=== PATIENT | male | born 1960 | race Caucasian/White ===

== ENCOUNTER 2018-11-14 08:50 | Day surgery (SDC) | payer OTHER ==
[2018-11-14] MEDS ORDERED: Xylocaine-Mpf 2% 5 Ml Vial IJ ONE (08:51)
[2018-11-14] MEDS ORDERED: DIPRIVAN 200 MG/20 ML IV ONE (08:51)
[2018-11-14] MEDS ORDERED: Depo-Medrol 40 MG/ML IM ONE (08:51)
--- NOTE | 2018-11-14 13:04 | XRAY ---
Indication: Bilateral L4-S1 MBB. Intraoperative fluoroscopy was provided for 10 seconds. Single digital spot image submitted for interpretation demonstrates posterior needle tips projecting over the expected course of the left and right L4-S1 nerve roots. Correlate with intraoperative findings/report.
--- NOTE | 2018-11-14 13:06 | XRAY ---
10 seconds fluoroscopy time in surgery for bilateral L4-S1 MBB.
[2018-11-14] MEDS ORDERED: Lactated Ringers 1,000 ML IV ONE (17:02)
== END 2018-11-14 12:05 | disposition home or self-care (01) ==
LOC: SDC-PAIN 08:50
PROVIDERS: ATTEND Psychiatry & Neurology Pain Medicine
DX: M47.816 Spondylosis without myelopathy or radiculopathy, lumbar region (principal); M19.90 Unspecified osteoarthritis, unspecified site; I25.10 Atherosclerotic heart disease of native coronary artery without angina pectoris
CPT/HCPCS: 72020; 77002; J1030; J2704

== ENCOUNTER 2018-12-26 09:33 | Day surgery (SDC) | payer OTHER ==
[2018-12-26] MEDS ORDERED: Depo-Medrol 40 MG/ML IM ONE (09:34)
[2018-12-26] MEDS ORDERED: Marcaine 0.5% SDV 10 ML IJ ONE (09:34)
[2018-12-26] MEDS ORDERED: Ketamine HCl 50 MG/ML ONE (10:53)
[2018-12-26] MEDS ORDERED: DIPRIVAN 200 MG/20 ML IV ONE (10:53)
--- NOTE | 2018-12-26 12:19 | XRAY ---
Indication: Bilateral L4-S1 MBB. Intraoperative fluoroscopy was provided for 11 seconds. Single digital spot image submitted for interpretation demonstrates posterior needle tips projecting over the expected course of the left and right L4-S1 nerve roots. Correlate with intraoperative findings/report.
--- NOTE | 2018-12-26 12:21 | XRAY ---
11 seconds fluoroscopy time in surgery for bilateral L4-S1 MBB.
[2018-12-26] MEDS ORDERED: Lactated Ringers 1,000 ML IV ONE (15:53)
== END 2018-12-26 11:25 | disposition home or self-care (01) ==
LOC: SDC-PAIN 09:33
PROVIDERS: ATTEND Psychiatry & Neurology Pain Medicine
DX: M47.816 Spondylosis without myelopathy or radiculopathy, lumbar region (principal); I25.10 Atherosclerotic heart disease of native coronary artery without angina pectoris; Z79.899 Other long term (current) drug therapy
CPT/HCPCS: 72020; 77002; J1030; J2704